=== PATIENT | female | born 1975 | race Caucasian/White ===

== ENCOUNTER 2020-01-16 07:04 | Emergency (ER) | payer OTHER ==
--- NOTE | 2020-01-16 07:26 | EDM.PDOC ---
ED HPI GENERAL MEDICAL PROBLEM - General Chief Complaint: Genitourinary Problem Stated Complaint: POSS UTI Time Seen by Provider: 01/16/20 07:19 - History of Present Illness INITIAL COMMENTS - FREE TEXT/NARRATIVE: 44-year-old female presents the emergency room with what she believes is a urinary tract infection. Patient has a almost 24-hour history of burning and frequency with urination. Patient has had multiple urinary tract infections in the past. She drove here yesterday from [place] and thinks this may have been the precipitating event. Patient denies any fevers or chills. She is not having any other abdominal symptoms other than the lower abdominal pain. No nausea vomiting or loose stools. Patient is currently treated for hypertension depression and anxiety, denies other medical problems. Patient denies she has had a tubal. Back Pain Score (Numeric/FACES): 4 - Related Data Allergies Allergy/AdvReac Type Severity Reaction Status Date / Time No Known Allergies Allergy Verified 01/16/20 07:12 Home Meds: Home Meds ARIPiprazole [Abilify] 2 mg PO DAILY 01/16/20 [History] ClonazePAM [KlonoPIN] 0.5 mg PO DAILY 01/16/20 [History] Metoprolol Succinate [Toprol Xl] 25 mg PO DAILY 01/16/20 [History] Nitrofurantoin Monohyd/M-Cryst [Macrobid 100 mg Capsule] 100 mg PO BID #14 capsule 01/16/20 [Rx] buPROPion HCL [Wellbutrin Xl] 300 mg PO DAILY 01/16/20 [History] ED ROS GENERAL - Review of Systems Review Of Systems: See Below Constitutional: Reports: No Symptoms HEENT: Reports: No Symptoms Respiratory: Reports: No Symptoms Cardiovascular: Reports: No Symptoms GI/Abdominal: Reports: Abdominal Pain (Mild lower midline abdominal pain). Denies: Constipation, Diarrhea, Nausea, Vomiting ED EXAM, GI/ABD - Physical Exam Exam: See Below Exam Limited By: No Limitations General Appearance: Alert, No Apparent Distress Head: Atraumatic Neck: Normal Inspection, Supple, Non-Tender, Full Range of Motion Respiratory/Chest: No Respiratory Distress, Lungs Clear, Normal Breath Sounds Cardiovascular: Regular Rate, Rhythm, No Edema, No Murmur GI/Abdominal Exam: Normal Bowel Sounds, Soft, Other (Minimal suprapubic discomfort with palpation no other abdominal discomfort noted certainly no rigidity rebound or guarding noted.) Back Exam: Normal Inspection. No: CVA Tenderness (L), CVA Tenderness (R) Neurological: Alert, Oriented, Normal Cognition Course - Vital Signs Last Recorded V/S: Last Vital Signs Temp 36.2 C 01/16/20 07:14 Pulse 66 01/16/20 07:14 Resp 16 01/16/20 07:14 BP 127/89 01/16/20 07:14 Pulse Ox 100 01/16/20 07:14 - Orders/Labs/Meds Orders: Active Orders 24 hr Category Date Time Status CULTURE URINE [RM] Stat Lab 01/16/20 08:04 Ordered Labs: Laboratory Tests 01/16/20 Range/Units 07:30 Urine Color Yellow (Yellow) Urine Appearance Clear (Clear) Urine pH 7.0 (5.0-8.0) Ur Specific Hood 1.015 (1.005-1.030) Urine Protein Negative (Negative) Urine Glucose (UA) Negative (Negative) Urine Ketones Negative (Negative) Urine Occult Blood 3+ H (Negative) Urine Nitrite Negative (Negative) Urine Bilirubin Negative (Negative) Urine Urobilinogen 0.2 (0.2-1.0) Ur Leukocyte Esterase 2+ H (Negative) Urine RBC 5-10 H (0-5) /hpf Urine WBC 50-75 H (0-5) /hpf Ur Epithelial Cells 0-5 (0-5) /hpf Urine Bacteria Few (FEW) /hpf Urine Mucus Rare (FEW) /hpf - Re-Assessments/Exams Free Text/Narrative Re-Assessment/Exam: 01/16/20 08:07 Urinalysis suspicious for developing UTI culture ordered we will start her on Macrobid Departure - Departure Time of Disposition: 08:08 Disposition: Home, Self-Care 01 Clinical Impression: UTI, Urinary tract infectious disease - Discharge Information Referrals: PCP,Not In Area [Primary Care Provider] - Forms: ED Department Discharge Additional Instructions: Return to the emergency room with any questions problems or worsening symptoms. You have been started on Macrobid, this is an antibiotic for urinary tract infections. Take 1 twice daily until all gone. Follow-up with your regular healthcare provider when you get back home and have your urine rechecked ideally this should be done 3 to 5 days after you finish the antibiotics. Sepsis Event Note (ED) - Evaluation Sepsis Screening Result: No Definite Risk - Focused Exam Vital Signs: Vital Signs Temp Pulse Resp BP Pulse Ox 01/16/20 07:14 36.2 C 66 16 127/89 100 - My Orders Last 24 Hours: My Active Orders 01/16/20 08:04 CULTURE URINE [] Stat - Assessment/Plan Last 24 Hours: My Active Orders 01/16/20 08:04 CULTURE URINE [] Stat
== END 2020-01-16 08:18 | disposition home or self-care (01) ==
LOC: JD.ED 07:04
DX: N39.0 Urinary tract infection, site not specified (principal); Z79.899 Other long term (current) drug therapy
CPT/HCPCS: 81001; 87086; 87088; 87186; 99282; 99283